=== PATIENT | female | born 1945 | race African-American/Black ===

== ENCOUNTER 2016-03-26 13:57 | Emergency (ER) | payer OTHER, MEDICARE ==
[~2016-03-26] VITALS: Ht 167.6 cm; Wt 96.0 kg
[~2016-03-26 13:57] MED LIST: ASPI81 PO; MEVA40TA6 PO; PANT20 PO; PRIN20TA2 PO; TAB-TAB PO; VITA100018 PO
[2016-03-26 14:12] VITALS: BP 155/99; PULSE 56; RESP 16; TEMP 98.2; O2SAT 98
[2016-03-26 14:18] VITALS: BP 155/99; PULSE 61; RESP 16; O2SAT 99
[2016-03-26] MEDS ORDERED: LOVA40TA PO (14:18)
[2016-03-26] MEDS ORDERED: LISI-515 PO (14:18)
[2016-03-26] MEDS ORDERED: ASPI1TAB69 PO (14:18)
[2016-03-26] MEDS ORDERED: MULT1TAB84 PO (14:18)
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
[2016-03-26 15:35] LABS: AUTOMATED NEUTROPHIL # 3.6 TH/MM3 (1.8-7.7); BASOPHIL % 0.4 % (0.0-2.0); EOSINOPHIL # 0.2 TH/MM3 (0-0.4); EOSINOPHIL % 2.8 % (0.0-4.0); HEMATOCRIT 41.6 % (35.0-46.0); HEMO FLAGS DIFF FINAL; LYMPH % 37.8 % (9.0-44.0); LYMPHOCYTE # 2.7 TH/MM3 (1.0-4.8); MEAN CELL VOLUME 91.6 FL (80.0-100.0); MEAN CORPUSCULAR HGB CONC 32.7 % (32.0-36.0); MONO % 8.1 % (0.0-8.0); NEUT % 50.9 % (16.0-70.0); PLATELET COUNT 208 TH/MM3 (150-450); RED BLOOD COUNT 4.55 MIL/MM3 (4.00-5.30); RED CELL DISTRIBUTION WIDTH 13.9 % (11.6-17.2); WHITE BLOOD COUNT 7.1 TH/MM3 (4.0-11.0)
[2016-03-26 15:56] LABS: BICARBONATE 28.2 MEQ/L (21.0-32.0); POTASSIUM 4.1 MEQ/L (3.5-5.1)
[2016-03-26] MEDS ORDERED: IOHEXOL 350 MG/ML 10 ML VIAL (for RAD DIAG) IV ONE (16:51)
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
[2016-03-26] MEDS ORDERED: DICL75TA PO ×2 (17:14→17:16)
[2016-03-26] MEDS ORDERED: ROBA750T PO ×2 (17:14→17:16)
[2016-06-16] MEDS ORDERED: TIMO0.5S30 EACH EYE ×2 (13:21→16:41)
== END 2016-03-26 17:48 | disposition home or self-care (01) ==
LOC: NEPE 13:57
DX: S13.4XXA Sprain of ligaments of cervical spine, initial encounter (principal); S20.212A Contusion of left front wall of thorax, initial encounter; V43.52XA Car driver injured in collision with other type car in traffic accident, initial encounter; Y92.410 Unspecified street and highway as the place of occurrence of the external cause; M25.562 Pain in left knee; M25.512 Pain in left shoulder; I10 Essential (primary) hypertension; E78.00 Pure hypercholesterolemia, unspecified; E11.9 Type 2 diabetes mellitus without complications
CPT/HCPCS: 70450; 71010; 71260; 72125; 72131; 73560; 74177; 80048; 85025; 99284; Q9967